=== PATIENT | male | born 1950 | race Caucasian/White ===

== ENCOUNTER 2024-01-17 17:32 | Emergency (ER) | payer OTHER, BC ==
[~2024-01-17] VITALS: Ht 175.3 cm; Wt 88.0 kg
[~2024-01-17 17:32] MED LIST: ANTIVERT25 MG PO; BACTRIM DS1 TAB OR; BENADRYL 50MG C50 MG OR; BENTYL10 MG PO; DICYCLOMINE10 MG PO; LAMICTAL25 M2 OR; LOPRESSOR25 M1 PO; LORTAB 10 OR; LORTAB 10 PO; LORTAB 10-325 M1 TAB PO; LORTAB 7.5 OR; MEDDOSEPAK OR; MORPHINE SULFAT60 M1 PO; OMEPRAZOLE20 MG PO; PERCOCET 10/31 COMBO PO; PRAMIPEXOLE0.125 MG PO; SIMVASTATIN40 MG PO; SOMA350 MG PO; TAMSULOSIN0.4 MG PO; TEMAZEPAM30 MG PO; TRAMADOL HCL50 MG PO; ULTRAM50 MG PO; VENLAFAXINE HCL75 M1 PO; VENLAFAXINE50 MG PO; ZOFRAN ODT4 MG PO
[2024-01-17 18:05] VITALS: BP 120/65
[2024-01-17 18:15] VITALS: BP 128/63
[2024-01-17 18:30] VITALS: BP 125/61
[2024-01-17 18:45] LABS: BASO% 0.2 % (0-3); EOS% 2.8 % (0-8); HEMATOCRIT 34.4 % (39.0-50.0); HEMOGLOBIN 11.7 g/dl (14.0-18.0); IMMATURE GRANULOCYTES 0.2 % (0.0-5.0); LYMPH% 20.2 % (15-41); MEAN CELL VOLUME 95.6 fL CALC (80.0-100.0); MEAN CORPUSCULAR HGB 32.5 pG CALC (26.0-32.0); MONO% 8.3 % (2-13); NEUT# 5.61 thou/uL (1.82-7.42); NEUT% 68.3 % (42-76); RED BLOOD COUNT 3.6 mill/uL (4.70-6.10)
[2024-01-17 19:00] LABS: BILIRUBIN, TOTAL 0.7 mg/dL (0.2-1.3); C-REACTIVE PROTEIN 3.3 mg/dL (0-0.9); CREATININE 1.1 mg/dL (0.7-1.3); POTASSIUM 4.3 mmol/l (3.5-5.1); TOTAL PROTEIN 6.2 g/dL (6.3-8.2)
[2024-01-17] MEDS ORDERED: SULFAMETHOXAZOLE W/TRIMETHOPRI 1 COMBO TAB PO ONE (19:40)
[2024-01-17] MEDS ORDERED: MORPHINE SULFATE 4 MG/ML VIAL IM ONE (19:50)
[2024-01-17 20:15] VITALS: BP 125/61
== END 2024-01-17 20:16 | disposition home or self-care (01) | DRG 603 ==
LOC: ED 17:32
PROVIDERS: Nurse Practitioner
DX: L03.115 Cellulitis of right lower limb (principal); I10 Essential (primary) hypertension; Z87.442 Personal history of urinary calculi; Z95.5 Presence of coronary angioplasty implant and graft

== ENCOUNTER 2024-06-10 05:09 | Emergency (ER) | payer OTHER, BC ==
[~2024-06-10] VITALS: Ht 180.3 cm; Wt 90.0 kg
[2024-06-10 05:15] VITALS: BP 168/80
[2024-06-10] MEDS ORDERED: CLOPIDOGREL75 MG PO (05:21)
[2024-06-10 05:30] VITALS: BP 143/70
[2024-06-10] MEDS ORDERED: Diph, Acellular Pertussis, Tet 0.5 ML/VIAL (Tdap) SDV IM ONE (05:40)
[2024-06-10 05:45] VITALS: BP 140/64
[2024-06-10 06:02] LABS: BASO% 0.3 % (0-3); EOS% 2.6 % (0-8); HEMATOCRIT 33.9 % (39.0-50.0); HEMOGLOBIN 11.1 g/dl (14.0-18.0); IMMATURE GRANULOCYTES 0.1 % (0.0-5.0); LYMPH% 21.7 % (15-41); MEAN CELL VOLUME 98.8 fL CALC (80.0-100.0); MEAN CORPUSCULAR HGB 32.4 pG CALC (26.0-32.0); MEAN CORPUSCULAR HGB CONC 32.7 g/dL CAL (32.0-36.0); MONO% 7.8 % (2-13); NEUT# 4.73 thou/uL (1.82-7.42); NEUT% 67.5 % (42-76); RED BLOOD COUNT 3.43 mill/uL (4.70-6.10)
[2024-06-10 06:12] LABS: CREATININE 0.9 mg/dL (0.7-1.3); POTASSIUM 4.3 mmol/l (3.5-5.1)
[2024-06-10 06:18] LABS: PROTHROMBIN TIME 10.4 SECONDS (9.0-12.5)
[2024-06-10] MEDS ORDERED: LORTAB 5/3255 MG PO (06:44)
[2024-06-10 07:10] VITALS: BP 140/64
== END 2024-06-10 07:15 | disposition home or self-care (01) | DRG 125 ==
LOC: ED 05:09
PROVIDERS: Family Medicine
PROC: 0HQ1XZZ Repair Face Skin, External Approach (ICD-10-PCS; principal; 2024-06-10)
DX: S01.111A Laceration without foreign body of right eyelid and periocular area, initial encounter (principal); S01.21XA Laceration without foreign body of nose, initial encounter; I10 Essential (primary) hypertension; W06.XXXA Fall from bed, initial encounter; Y92.003 Bedroom of unspecified non-institutional (private) residence as the place of occurrence of the external cause; Z79.02 Long term (current) use of antithrombotics/antiplatelets; Z95.5 Presence of coronary angioplasty implant and graft
CPT/HCPCS: 90715

== ENCOUNTER 2024-06-17 10:48 | Emergency (ER) | payer OTHER, BC ==
[~2024-06-17] VITALS: Ht 180.3 cm; Wt 88.4 kg
[~2024-06-17 10:48] MED LIST changes: +CLOPIDOGREL75 MG PO; +LORTAB 5/3255 MG PO
[2024-06-17 10:57] VITALS: BP 122/76
[2024-06-17 11:01] VITALS: BP 136/70
[2024-06-17 11:15] VITALS: BP 127/71
== END 2024-06-17 11:40 | disposition home or self-care (01) | DRG 950 ==
LOC: ED 10:48
DX: S01.111D Laceration without foreign body of right eyelid and periocular area, subsequent encounter (principal); S01.21XD Laceration without foreign body of nose, subsequent encounter; I10 Essential (primary) hypertension; W19.XXXD Unspecified fall, subsequent encounter